=== PATIENT | female | born 1995 | race American Indian/Alaskan Native ===

== ENCOUNTER 2017-12-06 06:12 | Emergency (ER) | payer OTHER ==
[2017-12-06 06:35] VITALS: BP 126/83
--- NOTE | 2017-12-06 07:15 | Emergency Department Report ---
ED General Adult HPI - General Chief complaint: Abdominal Pain Stated complaint: TOE BREAKS, HEADACES,CRAMPS Time Seen by Provider: 12/06/17 07:07 Source: patient Mode of arrival: Ambulatory Limitations: No Limitations - History of Present Illness Initial comments: 22-year-old -Russian female presents to the emergency department complaining of a 15 day history of loss of menstruation. She reports having left breast pain and occasional pelvic cramping which has been present for the last 8 days. She reports taken a test 8 days ago and it being negative. Since that time she has felt a dull headache but is worried that she may be and had the test she had performed was not acceptable. She reports no nausea, vomiting, fever, chills, sweats, chest pain, palpitations. No dysuria. No hematuria, hematemesis, hematochezia -: Gradual (15 days) Quality: aching Consistency: intermittent Improves with: none Worsens with: none - Related Data Previous Rx's Medication Instructions Recorded Last Taken Type Butalb/Acetamin/Caff 50-325-40 1 tab PO Q8HR PRN #20 tablet 12/06/17 Unknown Rx [Fioricet] Allergies Allergy/AdvReac Type Severity Reaction Status Date / Time No Known Allergies Allergy Unverified 12/06/17 06:36 ED Review of Systems ROS: Stated complaint: TOE BREAKS, HEADACES,CRAMPS Other details as noted in HPI Constitutional: denies: chills, fever Eyes: denies: eye pain, eye discharge, vision change ENT: denies: ear pain, throat pain Respiratory: denies: cough, shortness of breath, wheezing Cardiovascular: denies: chest pain, palpitations Endocrine: no symptoms reported Gastrointestinal: denies: abdominal pain, nausea, diarrhea Genitourinary: abnormal menses. denies: urgency, dysuria, discharge Musculoskeletal: denies: back pain, joint swelling, arthralgia Skin: denies: rash, lesions Neurological: denies: headache, weakness, paresthesias Psychiatric: denies: anxiety, depression Hematological/Lymphatic: denies: easy bleeding, easy bruising ED Past Medical Hx - Past Medical History Previous Medical History?: No - Surgical History Past Surgical History?: No - Social History Smoking Status: Former Smoker Substance Use Type: None - Medications Home Medications: Home Medications Medication Instructions Recorded Confirmed Last Taken Type Butalb/Acetamin/Caff 50-325-40 1 tab PO Q8HR PRN #20 tablet 12/06/17 Unknown Rx [Fioricet] ED Physical Exam - General Limitations: No Limitations General appearance: alert, in no apparent distress - Head Head exam: Present: atraumatic, normocephalic - Eye Eye exam: Present: normal appearance - ENT ENT exam: Present: mucous membranes moist - Neck Neck exam: Present: normal inspection - Respiratory Respiratory exam: Present: normal lung sounds bilaterally. Absent: respiratory distress - Cardiovascular Cardiovascular Exam: Present: regular rate, normal rhythm. Absent: systolic murmur, diastolic murmur, rubs, gallop - GI/Abdominal GI/Abdominal exam: Present: soft, normal bowel sounds - Extremities Exam Extremities exam: Present: normal inspection - Back Exam Back exam: Present: normal inspection - Neurological Exam Neurological exam: Present: alert, oriented X3, CN II-XII intact - Psychiatric Psychiatric exam: Present: normal affect, normal mood - Skin Skin exam: Present: warm, dry, intact, normal color. Absent: rash - Other Other exam information: No tenderness to the tail of Lewis. No lymphangitis or cellulitis. No unequal breath sizes. No lymphadenopathy to the axillary or the epitrochlear nodes ED Course Vital Signs 12/06/17 12/06/17 06:33 06:38 Temperature 97.4 F L Pulse Rate 89 Respiratory 18 Rate Blood Pressure 126/83 O2 Sat by Pulse 100 Oximetry ED Medical Decision Making - Lab Data Result diagrams: 12/06/17 06:54 12/06/17 06:54 - EKG Data When compared to previous EKG there are: no significant change - Medical Decision Making The patient states the primary reason for coming in was to determine her status - Differential Diagnosis premenstrual migraine, premenstrual syndrome, migraine, tension headaches Critical care attestation.: If time is entered above; I have spent that time in minutes in the direct care of this critically ill patient, excluding procedure time. ED Disposition Clinical Impression: Cephalgia Disposition: DC-01 TO HOME OR SELFCARE Is pt being admited?: No Does the pt Need Aspirin: No Condition: Stable Instructions: Abdominal Pain (ED), Acute Headache (ED) Prescriptions: Butalb/Acetamin/Caff 50-325-40 [Fioricet] 1 tab PO Q8HR PRN #20 tablet PRN Reason: Headache
[2017-12-06 07:25] LABS: Hemoglobin 13.5 gm/dl (10.1-14.3); Mean Corpuscular HGB Conc 33 % (30-34); Mean Corpuscular Hemoglobin 29 pg (28-32); Mean Corpuscular Volume 89 fl (79-97); Platelet Count 218 K/mm3 (140-440); Red Blood Count 4.61 M/mm3 (3.65-5.03)
[2017-12-06 07:35] LABS: BUN/Creatinine Ratio 30; Blood Urea Nitrogen 18 mg/dL (7-17); Calcium 9.8 mg/dL (8.4-10.2); Hemolysis Index 2
[2017-12-06 07:52] LABS: Bacteria,Urine 3+ /HPF (Negative); Bilirubin,Urine NEG (Negative); Blood,Urine NEG (Negative); Color,Urine Straw (Yellow); Protein,Urine <15 mg/dL mg/dL (Negative); RBC,Urine < 1.0 /HPF (0.0-6.0); Urobilinogen,Urine < 2.0 mg/dL (<2.0); WBC,Urine < 1.0 /HPF (0.0-6.0)
== END 2017-12-06 08:18 | disposition home or self-care (01) ==
LOC: ED 06:12
DX: N64.4 Mastodynia (principal); R10.2 Pelvic and perineal pain; R51 Headache; Z87.891 Personal history of nicotine dependence
CPT/HCPCS: 36415; 80048; 81001; 84703; 85027; 99283

== ENCOUNTER 2018-10-23 21:21 | Emergency (ER) | payer SELFPAY ==
--- NOTE | 2018-10-23 21:39 | Emergency Department Report ---
Blank Doc - Documentation Documentation: This is a 23-year-old female that presents with acute on chroninc intermittent chest pain x1 year. Currently patient denies any chest pain. Also has right middle finger pain x1 week. This initial assessment/diagnostic orders/clinical plan/treatment(s) is/are subject to change based on patient's health status, clinical progression and re- assessment by fellow clinical providers in the ED. Further treatment and workup at subsequent clinical providers discretion. Patient/guardians urged not to elope from the ED as their condition may be serious if not clinically assessed and managed. Initial orders include: 1- Patient sent to [facility] for further evaluation and treatment 2- xray of finger
[2018-10-23 21:41] VITALS: BP 133/71
--- NOTE | 2018-10-23 22:39 | XRay Report ---
RIGHT HAND 3 VIEWS INDICATION: hand pain. COMPARISON: No relevant prior imaging study available. FINDINGS: There is no significant skeletal abnormality. No soft tissue swelling or foreign bodies. IMPRESSION: 1. No acute findings. Signer Name: Corby Bailey MD Signed: 10/23/2018 10:35 PM Workstation Name: [id number]
== END 2018-10-24 02:14 | disposition left against medical advice (07) ==
LOC: ED 21:21
DX: M79.644 Pain in right finger(s) (principal); Z53.21 Procedure and treatment not carried out due to patient leaving prior to being seen by health care provider

== ENCOUNTER 2019-01-29 16:27 | Emergency (ER) | payer SELFPAY ==
[2019-01-29 16:43] VITALS: BP 141/78
--- NOTE | 2019-01-29 16:45 | Event Note ---
ED Screening Note Date of service: 01/29/19 Time: 16:39 ED Screening Note: 23 y o female presents for dental pain x 2 days, no trauma no injuries no gingival swelling or bleeding This initial assessment/diagnostic orders/clinical plan/treatment(s) is/are subject to change based on patients health status, clinical progression and re- assessment by fellow clinical providers in the ED. Further treatment and workup at subsequent clinical providers discretion. Patient/guardian urged not to elope from the ED as their condition may be serious if not clinically assessed and managed. Initial orders include: Given referal to dental clinic VSS
== END 2019-01-29 17:51 | disposition left against medical advice (07) ==
LOC: ED 16:27
DX: K08.89 Other specified disorders of teeth and supporting structures (principal); Z53.21 Procedure and treatment not carried out due to patient leaving prior to being seen by health care provider

== ENCOUNTER 2019-02-22 16:31 | Emergency (ER) | payer SELFPAY ==
--- NOTE | 2019-02-22 17:31 | Event Note ---
ED Screening Note Date of service: 02/22/19 Time: 17:30 ED Screening Note: Pt complains of cough, congestion, and runny nose x 10 days states symptoms improved after a few days, but then worsend reports fever 2 days ago denies SOB This initial assessment/diagnostic orders/clinical plan/treatment(s) is/are subject to change based on patients health status, clinical progression and re- assessment by fellow clinical providers in the ED. Further treatment and workup at subsequent clinical providers discretion. Patient/guardian urged not to elope from the ED as their condition may be serious if not clinically assessed and managed. Initial orders include: CXR
--- NOTE | 2019-02-22 18:17 | XRay Report ---
CHEST 2 VIEWS INDICATION / CLINICAL INFORMATION: cough, fever. COMPARISON: None available. FINDINGS: Heart size is normal. The lungs are clear. No pleural fluid or pneumothorax. Signer Name: Nomi Anthony MD Signed: 02/22/2019 6:13 PM Workstation Name: [id number]
[2019-02-22] MEDS ORDERED: IBUPROFEN 400 MG TAB PO ONE (21:21)
--- NOTE | 2019-02-22 21:26 | Emergency Department Report ---
- General Chief Complaint: Upper Respiratory Infection Stated Complaint: THROAT PAIN, BODY ACHES AND EYE PAIN Time Seen by Provider: 02/22/19 17:29 Source: patient, RN notes reviewed, old records reviewed Mode of arrival: Ambulatory Limitations: No Limitations - History of Present Illness Initial Comments: Patient is a pleasant 23-year-old female who is not known to this provider previously. She indicates that she is not . The patient presents to the ER with a complaint of body aches, sore throat, fatigue, malaise. Symptoms present since February 14. They have been intermittent. They do not radiate anywhere. No exacerbating or relieving factors. There is no complaint of severe headache, midline neck pain, chest pain, abdominal pain, shortness of breath or urinary symptoms. She is using [id number] TheraFlu for symptom control. She might have sick contacts. She is not sure. There is no change in visual acuity. She has no ocular complaints to myself. She does not work glasses or contact lenses. did not get her flu shot that she is aware. MD Complaint: cough, sore throat, rhinorrhea, nasal congestion -: Gradual, days(s) Consistency: intermittent Worsens With: nothing Associated Symptoms: rhinorrhea, nasal congestion, sore throat, cough. denies: fever, chills, myalgias, diaphoresis, stiff neck, nausea, vomiting, diarrhea, dysuria, rash, confusion, right sweats, weight loss, epistaxis, hoarseness, ear pain Treatments Prior to Arrival: "cold medicine" - Related Data Previous Rx's Medication Instructions Recorded Last Taken Type Acetaminophen [Tylenol] 325 mg PO Q4HR PRN #30 capsule 02/22/19 Unknown Rx Glycerin/Propylene Glycol 1 ml OP PRN PRN #1 bottle 02/22/19 Unknown Rx [Artificial Tears Drops] Ibuprofen [Motrin] 400 mg PO Q8H PRN #30 tablet 02/22/19 Unknown Rx Allergies Allergy/AdvReac Type Severity Reaction Status Date / Time No Known Allergies Allergy Unverified 12/06/17 06:36 ED Review of Systems ROS: Stated complaint: THROAT PAIN, BODY ACHES AND EYE PAIN Other details as noted in HPI Comment: per hpi ED Past Medical Hx - Past Medical History Previous Medical History?: No - Surgical History Past Surgical History?: No - Social History Smoking Status: Never Smoker Substance Use Type: None - Medications Home Medications: Home Medications Medication Instructions Recorded Confirmed Last Taken Type Acetaminophen [Tylenol] 325 mg PO Q4HR PRN #30 capsule 02/22/19 Unknown Rx Glycerin/Propylene Glycol 1 ml OP PRN PRN #1 bottle 02/22/19 Unknown Rx [Artificial Tears Drops] Ibuprofen [Motrin] 400 mg PO Q8H PRN #30 tablet 02/22/19 Unknown Rx ED Physical Exam - General Limitations: No Limitations General appearance: alert, in no apparent distress - Head Head exam: Present: atraumatic, normocephalic - Eye Eye exam: Present: normal appearance, EOMI, conjunctival injection (there is minimal left-sided conjunctival injection. There is no pus or streaking. There is no direct or consensual photophobia. Visual acuity intact to finger counting and color perception at a close distance). Absent: nystagmus - ENT ENT exam: Present: normal exam, normal orophraynx, mucous membranes moist, TM's normal bilaterally - Neck Neck exam: Present: normal inspection, full ROM. Absent: tenderness, meningismus - Respiratory Respiratory exam: Present: normal lung sounds bilaterally. Absent: respiratory distress - Cardiovascular Cardiovascular Exam: Present: regular rate, normal rhythm, normal heart sounds. Absent: bradycardia, tachycardia, irregular rhythm, systolic murmur, diastolic murmur, rubs, gallop - GI/Abdominal GI/Abdominal exam: Present: soft. Absent: distended, tenderness, guarding, rebound, rigid, pulsatile mass - Extremities Exam Extremities exam: Present: normal inspection, full ROM, other (2+ pulses noted in the bilateral upper and lower extremities. The pelvis is stable. There is no long bony tenderness. The muscular compartments are soft. There is no redness, pus, streaking or erythema.). Absent: pedal edema, calf tenderness - Back Exam Back exam: Present: normal inspection, full ROM. Absent: tenderness, CVA tenderness (R), CVA tenderness (L), paraspinal tenderness, vertebral tenderness - Neurological Exam Neurological exam: Present: alert, normal gait, other (there is no facial droop. The tongue is midline. Extraocular movements are intact bilaterally. Speaking in full sentences. Hearing is grossly intact. 5 out of 5 strength bilateral upper and lower extremities. Sensation is intact to light touch bilateral upper and lower extremities.). Absent: motor sensory deficit - Psychiatric Psychiatric exam: Present: normal affect, normal mood - Skin Skin exam: Present: warm, dry, intact, normal color. Absent: rash ED Course Vital Signs 02/22/19 16:52 Temperature 97.4 F L Pulse Rate 85 Respiratory 18 Rate Blood Pressure 118/56 O2 Sat by Pulse 100 Oximetry ED Medical Decision Making - Lab Data Vital Signs 02/22/19 16:52 Temperature 97.4 F L Pulse Rate 85 Respiratory 18 Rate Blood Pressure 118/56 O2 Sat by Pulse 100 Oximetry - Radiology Data Radiology results: report reviewed, image reviewed X-ray of the chest is negative for acute disease Print Report Referring Physician: LI MACIEL Patient Name: CHRISTI GOLDEN Date of : 1995 Sex: Female Report Date: 2019-02-22 Report Status: Finalized Findings [facility] [address] [place] [address] XRay Report Signed Patient: CHRISTI GOLDEN MR#: [id number] : 1995 Acct:[id number] Age/Sex: 23 / F ADM Date: 02/22/19 Loc: ED Attending Dr: Ordering Physician: LI MACIEL Date of Service: 02/22/19 Procedure(s): XR chest routine 2V Accession Number(s): [id number] cc: LI MACIEL Fluoro Time In Minutes: CHEST 2 VIEWS INDICATION / CLINICAL INFORMATION: cough, fever. COMPARISON: None available. FINDINGS: Heart size is normal. The lungs are clear. No pleural fluid or pneumothorax. Signer Name: Nomi Anthony MD Signed: 02/22/2019 6:13 PM Workstation Name: [id number] Transcribed By: RAGHU Dictated By: Nomi Anthony MD Electronically Authenticated By: Nomi Anthony MD Signed Date/Time: 02/22/191812 DD/ 11 TD/TT: - Medical Decision Making Differential diagnosis, including but not limited to: Cold, virus, influenza- like illness, viral syndrome Assessment and plan: 23-year-old female who is afebrile with reassuring vital signs, and no acute distress, currently playing on a cellular phone, appears to have probable viral syndrome. Patient does not appear to have an emergent medical condition at this time. We discussed expected management and return precautions. The patient verbalizes understanding. Critical care attestation.: If time is entered above; I have spent that time in minutes in the direct care of this critically ill patient, excluding procedure time. ED Disposition Clinical Impression: Viral syndrome Disposition: DC-01 TO HOME OR SELFCARE Is pt being admited?: No Does the pt Need Aspirin: No Condition: Stable Instructions: Viral Syndrome (ED) Additional Instructions: As we discussed, symptoms most likely coming from cold/virus infection. These typically do not get antibiotics. Patient can have ibuprofen every 6 hours, alternated with acetaminophen every 4 hours. Patient may not want to eat as much as normal, and this is expected. Recommend follow-up with the primary care doctor within the next 7-10 days. Make sure to drink plenty of fluids, and make certain to wash hands with soap and water. Return to the ER right away with lethargy, irritability, change in mental status, projectile vomiting, inability to tolerate liquid feeds. Referrals: [facility] [Provider Group] - as needed [facility] [Provider Group] - as needed
[2019-02-22 22:24] VITALS: BP 110/69
== END 2019-02-22 22:38 | disposition home or self-care (01) ==
LOC: ED 16:31
DX: B34.9 Viral infection, unspecified (principal); Z79.899 Other long term (current) drug therapy
CPT/HCPCS: 71046

== ENCOUNTER 2019-11-07 21:23 | Emergency (ER) | payer SELFPAY ==
[2019-11-07 22:23] VITALS: BP 138/72
--- NOTE | 2019-11-08 00:45 | Emergency Department Report ---
ED ENT HPI - General Chief complaint: Dental/Oral Stated complaint: RT SIDE WEAKNESS EAR ACHE TOOTHACHE Time Seen by Provider: 11/07/19 23:19 Source: patient Mode of arrival: Ambulatory Limitations: No Limitations - History of Present Illness Initial comments: 24-year-old F Macanese female resents emergency department complaining of a 3- day history of pain to her right lower molar area pain is worse with eating. MD complaint: tooth pain -: Gradual Location: tooth # Severity: mild, moderate Quality: dull Consistency: constant Improves with: none Worsens with: none Context- Dental: history of dental caries, poor dental care Associated Symptoms: toothache, sore throat - Related Data Previous Rx's Medication Instructions Recorded Last Taken Type Acetaminophen [Tylenol] 325 mg PO Q4HR PRN #30 capsule 02/22/19 Unknown Rx Glycerin/Propylene Glycol 1 ml OP PRN PRN #1 bottle 02/22/19 Unknown Rx [Artificial Tears Drops] Ibuprofen [Motrin] 400 mg PO Q8H PRN #30 tablet 02/22/19 Unknown Rx Amoxicillin [Amoxicillin TAB] 875 mg PO BID #20 tablet 11/08/19 Unknown Rx Chlorhexidine Mouthwash [Peridex] 15 ml MM BID #1 bottle 11/08/19 Unknown Rx Ketorolac [Toradol] 10 mg PO Q6H PRN #15 tablet 11/08/19 Unknown Rx Lidocaine Viscous 2% 5 ml MM Q3H PRN #120 udc 11/08/19 Unknown Rx Allergies Allergy/AdvReac Type Severity Reaction Status Date / Time No Known Allergies Allergy Unverified 12/06/17 06:36 ED Dental HPI - General Chief complaint: Dental/Oral Stated complaint: RT SIDE WEAKNESS EAR ACHE TOOTHACHE Time Seen by Provider: 11/07/19 23:19 Source: patient Mode of arrival: Ambulatory Limitations: No Limitations - Related Data Previous Rx's Medication Instructions Recorded Last Taken Type Acetaminophen [Tylenol] 325 mg PO Q4HR PRN #30 capsule 02/22/19 Unknown Rx Glycerin/Propylene Glycol 1 ml OP PRN PRN #1 bottle 02/22/19 Unknown Rx [Artificial Tears Drops] Ibuprofen [Motrin] 400 mg PO Q8H PRN #30 tablet 02/22/19 Unknown Rx Amoxicillin [Amoxicillin TAB] 875 mg PO BID #20 tablet 11/08/19 Unknown Rx Chlorhexidine Mouthwash [Peridex] 15 ml MM BID #1 bottle 11/08/19 Unknown Rx Ketorolac [Toradol] 10 mg PO Q6H PRN #15 tablet 11/08/19 Unknown Rx Lidocaine Viscous 2% 5 ml MM Q3H PRN #120 udc 11/08/19 Unknown Rx Allergies Allergy/AdvReac Type Severity Reaction Status Date / Time No Known Allergies Allergy Unverified 12/06/17 06:36 ED Review of Systems ROS: Stated complaint: RT SIDE WEAKNESS EAR ACHE TOOTHACHE Other details as noted in HPI Comment: All other systems reviewed and negative ED Past Medical Hx - Past Medical History Previous Medical History?: No - Surgical History Past Surgical History?: No - Social History Smoking Status: Never Smoker Substance Use Type: None - Medications Home Medications: Home Medications Medication Instructions Recorded Confirmed Last Taken Type Acetaminophen [Tylenol] 325 mg PO Q4HR PRN #30 capsule 02/22/19 Unknown Rx Glycerin/Propylene Glycol 1 ml OP PRN PRN #1 bottle 02/22/19 Unknown Rx [Artificial Tears Drops] Ibuprofen [Motrin] 400 mg PO Q8H PRN #30 tablet 02/22/19 Unknown Rx Amoxicillin [Amoxicillin TAB] 875 mg PO BID #20 tablet 11/08/19 Unknown Rx Chlorhexidine Mouthwash [Peridex] 15 ml MM BID #1 bottle 11/08/19 Unknown Rx Ketorolac [Toradol] 10 mg PO Q6H PRN #15 tablet 11/08/19 Unknown Rx Lidocaine Viscous 2% 5 ml MM Q3H PRN #120 udc 11/08/19 Unknown Rx ED Physical Exam - General Limitations: No Limitations General appearance: alert, in no apparent distress - Head Head exam: Present: atraumatic, normocephalic - Eye Eye exam: Present: normal appearance, PERRL, EOMI Pupils: Present: normal accommodation - ENT ENT exam: Present: normal exam, normal orophraynx, mucous membranes moist, TM's normal bilaterally, other (Few dental caries with significant erosion to the right lower molar region adjacent gingival erythema. Tongue and uvula are midline airways patent) - Neck Neck exam: Present: normal inspection, full ROM - Respiratory Respiratory exam: Present: normal lung sounds bilaterally. Absent: respiratory distress, wheezes, rales, chest wall tenderness, accessory muscle use - Cardiovascular Cardiovascular Exam: Present: regular rate, normal rhythm. Absent: systolic murmur, diastolic murmur, rubs, gallop - GI/Abdominal GI/Abdominal exam: Present: soft, normal bowel sounds - Extremities Exam Extremities exam: Present: normal inspection - Back Exam Back exam: Present: normal inspection - Neurological Exam Neurological exam: Present: alert, oriented X3 - Psychiatric Psychiatric exam: Present: normal affect, normal mood - Skin Skin exam: Present: warm, dry, intact, normal color. Absent: rash ED Course Vital Signs 11/07/19 11/07/19 22:15 22:23 Temperature 98.3 F Pulse Rate 77 Respiratory 16 Rate Blood Pressure 138/72 O2 Sat by Pulse 100 Oximetry Critical care attestation.: If time is entered above; I have spent that time in minutes in the direct care of this critically ill patient, excluding procedure time. ED Disposition Clinical Impression: Infected dental caries Disposition: - TO HOME OR SELFCARE Is pt being admited?: No Does the pt Need Aspirin: No Condition: Stable Instructions: Toothache (ED), Dental Caries (ED) Prescriptions: Amoxicillin [Amoxicillin TAB] 875 mg PO BID #20 tablet Lidocaine Viscous 2% 5 ml MM Q3H PRN #120 udc PRN Reason: Pain, Moderate (4-6) Chlorhexidine Mouthwash [Peridex] 15 ml MM BID #1 bottle Ketorolac [Toradol] 10 mg PO Q6H PRN #15 tablet PRN Reason: Pain Referrals: PRIMARY CARE, [Primary Care Provider] - 3-5 Days [facility] [Outside] - 3-5 Days
[2019-11-08] MEDS ORDERED: HYDROcodone/ACETAMINOPHEN 5-325 MG TAB PO ONE (01:01)
[2019-11-08] MEDS ORDERED: HYDROcodone/ACETAMINOPHEN 5-325 MG TAB ONE (01:04)
== END 2019-11-08 01:10 | disposition home or self-care (01) ==
LOC: ED 21:23
DX: K02.9 Dental caries, unspecified (principal)
CPT/HCPCS: 99282

== ENCOUNTER 2020-03-02 08:20 | Emergency (ER) | payer SELFPAY ==
[2020-03-02 08:56] VITALS: BP 126/69
[2020-03-02] MEDS ORDERED: CLINDAMYCIN 150 MG/ML VIAL 6 ML IM ONE (09:23)
[2020-03-02] MEDS ORDERED: KETOROLAC 10 MG TAB PO ONE (09:23)
[2020-03-02] MEDS ORDERED: dexAMETHasone 20 MG/5 ML VIAL IM ONE (09:23)
--- NOTE | 2020-03-02 09:27 | Emergency Department Report ---
ED ENT HPI - General Chief complaint: Dental/Oral Stated complaint: ABCESS Time Seen by Provider: 03/02/20 09:23 Source: patient Mode of arrival: Ambulatory Limitations: No Limitations - History of Present Illness Initial comments: 24-year-old female presents to the ER today complaining of dental pain to her right lower jaw for the past couple days. She states yesterday her right lower jaw started to swelling got worse this morning in addition to worsening pain. She denies any difficulty swallowing or difficulty breathing. She reports no drooling or trismus. She denies any fever or chills. She denies any other symptoms at this time. MD complaint: tooth pain -: Gradual, days(s) (2-3) - Related Data Previous Rx's Medication Instructions Recorded Last Taken Type Chlorhexidine Mouthwash [Peridex] 15 ml MM BID #1 bottle 11/08/19 Unknown Rx Lidocaine Viscous 2% 5 ml MM Q3H PRN #120 udc 11/08/19 Unknown Rx Acetaminophen/Codeine [Tylenol 1 tab PO Q4HR PRN #12 tablet 03/02/20 Unknown Rx /Codeine # 3 tab] Clindamycin [Clindamycin CAP] 300 mg PO Q6H #40 capsule 03/02/20 Unknown Rx Ketorolac [Toradol] 10 mg PO Q6H PRN #15 tablet 03/02/20 Unknown Rx Allergies Allergy/AdvReac Type Severity Reaction Status Date / Time No Known Allergies Allergy Unverified 12/06/17 06:36 ED Dental HPI - General Chief complaint: Dental/Oral Stated complaint: ABCESS Time Seen by Provider: 03/02/20 09:23 Source: patient Mode of arrival: Ambulatory Limitations: No Limitations - Related Data Previous Rx's Medication Instructions Recorded Last Taken Type Chlorhexidine Mouthwash [Peridex] 15 ml MM BID #1 bottle 11/08/19 Unknown Rx Lidocaine Viscous 2% 5 ml MM Q3H PRN #120 udc 11/08/19 Unknown Rx Acetaminophen/Codeine [Tylenol 1 tab PO Q4HR PRN #12 tablet 03/02/20 Unknown Rx /Codeine # 3 tab] Clindamycin [Clindamycin CAP] 300 mg PO Q6H #40 capsule 03/02/20 Unknown Rx Ketorolac [Toradol] 10 mg PO Q6H PRN #15 tablet 03/02/20 Unknown Rx Allergies Allergy/AdvReac Type Severity Reaction Status Date / Time No Known Allergies Allergy Unverified 12/06/17 06:36 ED Review of Systems ROS: Stated complaint: ABCESS Other details as noted in HPI Comment: All other systems reviewed and negative Constitutional: denies: chills, fever ENT: dental pain, other (+right lower jaw swelling). denies: ear pain, throat pain, epistaxis, congestion Respiratory: denies: cough, shortness of breath, wheezing Cardiovascular: denies: chest pain, palpitations Gastrointestinal: denies: abdominal pain, nausea, diarrhea Genitourinary: denies: urgency, dysuria, discharge Musculoskeletal: denies: back pain, joint swelling, arthralgia Skin: denies: rash, lesions Neurological: denies: headache, weakness, paresthesias Hematological/Lymphatic: denies: easy bleeding, easy bruising ED Past Medical Hx - Social History Smoking Status: Never Smoker Substance Use Type: None - Medications Home Medications: Home Medications Medication Instructions Recorded Confirmed Last Taken Type Chlorhexidine Mouthwash [Peridex] 15 ml MM BID #1 bottle 11/08/19 Unknown Rx Lidocaine Viscous 2% 5 ml MM Q3H PRN #120 udc 11/08/19 Unknown Rx Acetaminophen/Codeine [Tylenol 1 tab PO Q4HR PRN #12 tablet 03/02/20 Unknown Rx /Codeine # 3 tab] Clindamycin [Clindamycin CAP] 300 mg PO Q6H #40 capsule 03/02/20 Unknown Rx Ketorolac [Toradol] 10 mg PO Q6H PRN #15 tablet 03/02/20 Unknown Rx ED Physical Exam - General Limitations: No Limitations General appearance: alert, in no apparent distress - Head Head exam: Present: atraumatic, normocephalic, normal inspection - Eye Eye exam: Present: normal appearance, PERRL, EOMI Pupils: Present: normal accommodation - ENT ENT exam: Present: mucous membranes moist, other (dental abscess noted associated with right 1st molar; 1st molar severly decayed to gum. There is mod lower right jaw swelling but no facial cellulitis, trismus, drooling. ) - Neck Neck exam: Present: normal inspection, full ROM, lymphadenopathy (anterior cervical ), other (No swelling noted to anterior neck ). Absent: tenderness, meningismus - Respiratory Respiratory exam: Present: respiratory distress. Absent: normal lung sounds bilaterally - Cardiovascular Cardiovascular Exam: Present: regular rate, normal rhythm, normal heart sounds - GI/Abdominal GI/Abdominal exam: Present: soft. Absent: distended - Neurological Exam Neurological exam: Present: alert, oriented X3, CN II-XII intact, normal gait - Psychiatric Psychiatric exam: Present: normal affect, normal mood - Skin Skin exam: Present: intact ED Course Vital Signs 03/02/20 08:54 Temperature 99.2 F Pulse Rate 103 H Respiratory 18 Rate Blood Pressure 126/69 O2 Sat by Pulse 100 Oximetry Critical care attestation.: If time is entered above; I have spent that time in minutes in the direct care of this critically ill patient, excluding procedure time. ED Disposition Clinical Impression: Abscess, dental Disposition: - TO HOME OR SELFCARE Is pt being admited?: No Does the pt Need Aspirin: No Condition: Stable Instructions: Dental Abscess Additional Instructions: Continue doing the warm salt water rinses or you can apply a warm towel over your right lower jaw. Start taking antibiotics as prescribed today. Follow-up with the dentist in the next couple days. Return to the ER if your symptoms worsen with associated fever of 100.5 or higher, facial redness difficulty breathing or difficulty swallowing. Prescriptions: Clindamycin [Clindamycin CAP] 300 mg PO Q6H #40 capsule Ketorolac [Toradol] 10 mg PO Q6H PRN #15 tablet PRN Reason: Pain Acetaminophen/Codeine [Tylenol /Codeine # 3 tab] 1 tab PO Q4HR PRN #12 tablet PRN Reason: Pain Referrals: STANISLAV MEEHAN MD [Staff Physician] - 3-5 Days Forms: Work/School Release Form(ED) Time of Disposition: 09:33
== END 2020-03-02 11:26 | disposition home or self-care (01) ==
LOC: ED 08:20
DX: K04.7 Periapical abscess without sinus (principal); Z79.899 Other long term (current) drug therapy
CPT/HCPCS: 96372; 99282; J1100